=== PATIENT | female | born 1965 | race Caucasian/White ===

== ENCOUNTER 2020-12-21 17:12 | Emergency (ER) | payer BC ==
[2020-12-21] MEDS ORDERED: Ketorolac 30 MG/ML SDV IVPUSH ONE (17:47)
--- NOTE | 2020-12-21 17:56 | EDM.PDOC ---
ED HPI GENERAL MEDICAL PROBLEM - General Stated Complaint: SHOULDER PAIN Time Seen by Provider: 12/21/20 17:30 Source of Information: Reports: Patient, Family History Limitations: Reports: No Limitations - History of Present Illness INITIAL COMMENTS - FREE TEXT/NARRATIVE: c/o sharp pleuritic upper back pain x 1.5h lifting all day, driving back home locally, had sharp pain in mid uppper back radiating to both shoulders, inc'd with deep breath, better when she leaned forward quite severe took no meds here with on no regular meds never smoked not been tender to touch, denies spasm of muscle here Upper Back Pain Score (Numeric/FACES): 7 - Related Data Allergies Allergy/AdvReac Type Severity Reaction Status Date / Time No Known Allergies Allergy Verified 12/21/20 18:38 Home Meds: Home Meds Azithromycin 250 mg PO DAILY #4 tablet 12/21/20 [Rx] ED ROS GENERAL - Review of Systems Review Of Systems: See Below Constitutional: Reports: No Symptoms HEENT: Reports: No Symptoms Respiratory: Reports: No Symptoms Cardiovascular: Reports: No Symptoms Endocrine: Reports: No Symptoms GI/Abdominal: Reports: No Symptoms : Reports: No Symptoms Musculoskeletal: Reports: Shoulder Pain, Back Pain Skin: Reports: No Symptoms Neurological: Reports: No Symptoms Psychiatric: Reports: No Symptoms Hematologic/Lymphatic: Reports: No Symptoms Immunologic: Reports: No Symptoms ED EXAM, GENERAL - Physical Exam Exam: See Below Exam Limited By: No Limitations General Appearance: Alert, WD/WN, Other (looks uncomfortable, winced when i walked in room, sat and moved easily, did wince with deep breath) Ears: Hearing Grossly Normal Nose: Normal Inspection Throat/Mouth: Normal Inspection, Normal Lips, No Airway Compromise Head: Atraumatic, Normocephalic Neck: Normal Inspection, Supple, Non-Tender, Full Range of Motion Respiratory/Chest: No Respiratory Distress, Lungs Clear, Normal Breath Sounds, Chest Non-Tender, Other (back is nontender in midline, nontender over scapulas, muscle without spasm, nontender to percussion b/l) Cardiovascular: Regular Rate, Rhythm, No Edema, No Gallop, No Murmur GI/Abdominal: Normal Bowel Sounds, Soft, Non-Tender, No Distention Back Exam: Normal Inspection, Full Range of Motion. No: CVA Tenderness (R), CVA Tenderness (L) Extremities: Normal Inspection, Normal Range of Motion, Non-Tender, No Pedal Edema Neurological: Alert, Oriented, CN II-XII Intact, Normal Cognition, No Motor/Sensory Deficits Psychiatric: Normal Affect, Normal Mood Skin Exam: Warm, Dry, Intact, Normal Color, No Rash Lymphatic: No Adenopathy Course - Vital Signs Last Recorded V/S: Last Vital Signs Temp 36.6 C 12/21/20 17:12 Pulse 68 12/21/20 19:00 Resp 20 12/21/20 19:00 BP 102/53 L 12/21/20 19:00 Pulse Ox 100 12/21/20 19:00 - Orders/Labs/Meds Labs: Laboratory Tests 12/21/20 12/21/20 12/21/20 Range/Units 17:50 17:50 17:50 WBC 17.5 H (3.0-10.3) x10-3/uL RBC 4.45 (3.60-5.20) x10(6)uL Hgb 13.5 (11.4-15.5) g/dL Hct 41.3 (34.2-48.2) % MCV 92.8 (76.7-100.5) fL MCH 30.3 (23.9-33.9) pg MCHC 32.7 (31.9-34.8) g/dL RDW 12.1 L (12.3-16.5) % Plt Count 262 (151-488) x10(3)uL MPV 9.0 (7.1-12.4) fL Add Manual Diff Yes Neutrophils % (Manual) 86 H (46-82) % Lymphocytes % (Manual) 8 L (13-37) % Monocytes % (Manual) 6 (4-12) % Sodium 141 (135-145) mmol/L Potassium 4.4 (3.5-5.3) mmol/L Chloride 106 (100-110) mmol/L Carbon Dioxide 26 (21-32) mmol/L BUN 24 H (7-18) mg/dL Creatinine 0.9 (0.55-1.02) mg/dL Est Cr Clr Drug Dosing TNP Estimated GFR (MDRD) > 60 (>60) BUN/Creatinine Ratio 26.7 H (9-20) Glucose 100 (80-116) mg/dL Calcium 7.8 L (8.6-10.2) mg/dL Total Bilirubin 0.4 (0.1-1.3) mg/dL AST 17 (5-25) IU/L ALT 27 (12-36) U/L Alkaline Phosphatase 123 H (56-112) IU/L Troponin I < 4.0 L (4.0-60.3) pg/mL C-Reactive Protein 0.3 L (0.5-0.9) mg/dL Total Protein 6.9 (6.0-8.0) g/dL Albumin 3.6 (3.5-5.2) g/dL Globulin 3.3 g/dL Albumin/Globulin Ratio 1.1 Meds: Medications Discontinued Medications Generic Name Dose Route Start Last Admin Trade Name Freq PRN Reason Stop Dose Admin Sodium Chloride 1,000 mls @ 999 mls/hr 12/21/20 18:44 12/21/20 19:18 Normal Saline IV 12/21/20 19:44 999 mls/hr .BOLUS ONE Administration Iopamidol 63 ml 12/21/20 18:36 12/21/20 18:56 Iopamidol 755 Mg/Ml 75 Ml Bottle IV 12/21/20 18:37 63 ml ONETIME ONE Administration Ketorolac Tromethamine 30 mg 12/21/20 17:47 12/21/20 18:28 Ketorolac 30 Mg/Ml Sdv IVPUSH 12/21/20 17:48 30 mg ONETIME ONE Administration - Re-Assessments/Exams Free Text/Narrative Re-Assessment/Exam: 12/21/20 20:49 CT d/w Dr Mtz, no PE, no aneurysm, no pneumo, possible lingular infiltrate, there is a large 9 cm simple cyst on the liver compressing [place]'s capsule and adjacent structures that will likely need to be surgically removed WBC 17k c/w pain, infection seems unlikely as CRP completely neg, nevertheless there is a question of infiltrate on CT, will give azithro pain better after IV 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 For pain and inflammation, take acetaminophen 500 mg 2 tabs and ibuprofen 200 mg 3 tabs 4 times a day (meals and bedtime) for 3 days, longer if needed. Maintain hydration without caffeine or alcohol. Get adequate rest. Limit activities this weekend. See Dr Woodard in 3-4 days for further recommendations. Call or return to Emergency Department this weekend if you are feeling worse. You have a 9 cm cyst on your liver which will require additional evaluation. Discuss this with Dr Woodard. Sepsis Event Note (ED) - Focused Exam Vital Signs: Vital Signs Temp Pulse Resp BP Pulse Ox 12/21/20 19:00 68 20 102/53 L 100 12/21/20 18:58 70 20 98/49 L 100 12/21/20 17:12 36.6 C 62 20 118/79 96
[2020-12-21] MEDS ORDERED: Iopamidol 755 Mg/ML 75 ML Bottle IV ONE (18:36)
[2020-12-21] MEDS ORDERED: Sodium Chloride 0.9% 1,000 ML IV ONE (18:44)
--- NOTE | 2020-12-21 20:21 | CT ---
INDICATION: Sharp pleuritic midline upper back pain, question PE, question aneurysm. White blood count 17.5. COMPUTERIZED TOMOGRAPHY ANGIOGRAPHY OF THE CHEST WITH CONTRAST: Spiral 3.75 mm axial images were obtained of the chest with axial, sagittal, and coronal reconstructions 12/21/20 with 63 mL [id number] at 2 mL/second. No comparison studies. Total exam DLP was 703.39 mGy-cm. No gross consolidating pneumonia or effusion was identified. There are however some heavy markings at the lingula which may represent fibrosis, linear atelectasis or possibly even a very minimal patchy pneumonia. The heart did not appear enlarged. No pericardial effusion was seen. No mediastinal mass or definite lymphadenopathy was seen. No evidence of pulmonary embolism was identified. IMPRESSION: 1. No PE. 2. Question fibrosis versus minimal atelectasis versus very minimal patchy pneumonia at the lingula. Report was called to Dr. Berman at 2004 hours 12/21/20. KAYDEN
--- NOTE | 2020-12-21 20:36 | CT ---
INDICATION: Liver abnormality on chest CT. COMPUTERIZED TOMOGRAPHY OF THE ABDOMEN AND PELVIS WITH CONTRAST: Spiral 3.75 mm axial sections were obtained through the abdomen with sagittal and coronal reconstructions with IV contrast already injected on CTA of the chest, 12/21/20 - no comparisons. Total exam DLP was 1302.86 mGy-cm. There is noted a large simple-appearing cystic mass at the lower pole of the right lobe of the liver which is bulging the contour of the liver and is approximately 60% exophytic measuring 90.4 x 68.2 x 74 mm in diameter. No other specific liver abnormality was identified. No ductal dilatation was seen. No gallstones were demonstrated. Common bile duct was slightly dilated for age at 6.4 mm. No specific etiology was identified - it appeared to be normal in caliber in the head of the pancreas. The pancreas appeared normal. There was evidence of previous gastric surgery. The adrenal glands and kidneys appeared normal as did the spleen. No suggestion of a retroperitoneal mass was otherwise noted. There was some very minimal aortic calcification. The cecum appears to be mobile in position with the appendix appearing normal on coronal images 29-42 of 98 images. No evidence of free air or bowel obstruction was seen. No additional mass lesions, organomegaly or free fluid collections were identified in the abdomen or pelvis. The urinary bladder was unremarkable. Minimal sigmoid diverticulosis is noted without definite evidence of diverticulitis. IMPRESSION: 1. 9 cm cystic mass at the inferior pole of the right lobe of the liver which is bulging the contour of the liver - bulging the liver capsule anteriorly. 2. Normal-appearing appendix. 3. Minimal ASD. 4. Mobile cecum. 5. Hypertrophic degenerative changes and disk disease lower thoracic - upper lumbar spine. 6. There is suggestion of thickening of the wall of the gastric antrum which could be on the basis of PUD, but should be correlated clinically as other etiology cannot be excluded. Report was called to Dr. Berman at 2003 on 12/21/20. [facility]
[2020-12-21] MEDS ORDERED: Azithromycin 500 MG Tab PO ONE (20:42)
== END 2020-12-21 21:15 | disposition home or self-care (01) ==
LOC: FB.ED 17:12
DX: R09.1 Pleurisy (principal); D72.829 Elevated white blood cell count, unspecified; K76.89 Other specified diseases of liver; E86.0 Dehydration
CPT/HCPCS: 36415; 71275; 74177; 80053; 84484; 85025; 86140; 96374; 99284; A9270; J1885; J7030; Q9967